=== PATIENT | female | born 1995 | race Two or more races ===

== ENCOUNTER 2017-09-07 08:25 | Emergency (ER) | payer SELFPAY ==
[~2017-09-07] VITALS: Ht 165.1 cm; Wt 56.8 kg
[2017-09-07 09:28] LABS: BASOPHIL COUNT 0.1 K/uL (0-0.1); EOSINOPHIL (%) 1.3 % (0-5); EOSINOPHIL COUNT 0.1 K/uL (0-0.3); HEMATOCRIT 37.5 % (36.0-46.0); IMMATURE GRANULOCYTE (%) 0.5 % (0.0-0.7); IMMATURE GRANULOCYTE COUNT 0.1 K/uL; INSTRUMENT ABS NEUTROPHIL CT 5.7 K/uL; LYMPHOCYTE COUNT 3.7 K/uL (1.0-2.8); MCH 29.8 PG (29.0-34.0); MCHC 34.7 G/DL (30.0-36.0); MEAN PLAT.VOLUME 11.2 uM^3 (9.5-12.4); MONOCYTE (%) 7.8 % (3-12); MONOCYTE COUNT 0.8 K/uL (0-0.8); NEUTROPHIL (%) 54.6 % (45-76); NEUTROPHIL COUNT 5.7 K/uL (1.8-6.4); PLATELET COUNT 241 K/uL (156-360); RBC DIS.WIDTH-CV 11.9 % (11.8-14.6); RBC DIS.WIDTH-SD 37.3 % (39-53); RED BLOOD COUNT 4.36 M/uL (3.80-5.20); WHITE BLOOD COUNT 10.4 K/uL (4.1-10.2)
[2017-09-07 09:39] LABS: CHLORIDE 111 mEq/L (99-109); POTASSIUM 3.3 mEq/L (3.7-5.4); SODIUM 141 mEq/L (136-147)
[2017-09-07 09:41] LABS: GLUCOSE 97 mg/dL (70-99)
[2017-09-07 09:42] LABS: ANION GAP 10 MEQ/L (2-14)
[2017-09-07 09:43] LABS: TOTAL BILIRUBIN 0.3 mg/dL (0.0-1.0)
[2017-09-07 09:44] LABS: ALKALINE PHOSPHATASE 61 IU/L (3-129)
[2017-09-07 09:45] LABS: GFR ESTIMATE (CALCULATED) > 59 mL/min/
[2017-09-07 09:46] LABS: UREA NITROGEN (BUN) 9 mg/dL (9-23)
[2017-09-07 09:49] LABS: TROP-I INTERPRETATION NEGATIVE; TROPONIN-I < 0.01 ng/mL (0.0-0.30)
[2017-09-07] MEDS ORDERED: PROVENTIL HFA6.7 GM IH (11:27)
[2017-09-07] MEDS ORDERED: MOTRIN600 MG PO (11:27)
[2017-09-07] MEDS ORDERED: MAALOX ADVANCE355 ML PO (12:02)
[2017-09-07 12:15] VITALS: BP 128/68
== END 2017-09-07 12:22 | disposition home or self-care (01) ==
LOC: EME 08:25
PROVIDERS: Emergency Medicine
DX: R07.9 Chest pain, unspecified (principal); F41.0 Panic disorder [episodic paroxysmal anxiety]; J45.909 Unspecified asthma, uncomplicated; F17.200 Nicotine dependence, unspecified, uncomplicated
CPT/HCPCS: 71020; 80053; 84484; 85025; 93005; 99281; 99284; J1885